=== PATIENT | female | born 1995 | race Caucasian/White ===

== ENCOUNTER 2020-08-18 08:56 | Outpatient (CLI) | payer OTHER, SELFPAY ==
--- NOTE | 2020-08-18 12:00 | NEURO_ITS ---
Impression: # Complains of numbness of feet. # No evidence of motor or sensory neuropathy. # No evidence of Tarsal Tunnel Syndrome. # Normal needle/EMG exam. # Clinical correlation recommended. Nerve Conduction Studies Anti Sensory Summary Table Stim Site NR Peak (ms) P-T Amp (?V) Site1 Site2 Delta-P (ms) Dist (cm) Dajuan (m/s) Left Sup Fibular Anti Sensory (Ant Lat Mall) 14 cm 3.7 6.0 14 cm Ant Lat Mall 3.7 16.0 43 Right Sup Fibular Anti Sensory (Ant Lat Mall) 14 cm 3.4 4.2 14 cm Ant Lat Mall 3.4 16.0 47 Left Sural Anti Sensory (Lat Mall) Calf 3.7 11.1 Calf Lat Mall 3.7 16.0 43 Right Sural Anti Sensory (Lat Mall) Calf 4.3 5.1 Calf Lat Mall 4.3 18.0 42 Motor Summary Table Stim Site NR Onset (ms) O-P Amp (mV) Site1 Site2 Delta-0 (ms) Dist (cm) Dajuan (m/s) Left Lateral Plantar Motor (ADM) Med Mall 4.7 2.4 Right Lateral Plantar Motor (ADM) Med Mall 4.3 1.2 Left Peroneal Motor (Vastus Med) Ankle 3.5 2.0 Popit Ankle 8.1 39.0 48 Popit 11.6 1.8 Right Peroneal Motor (Vastus Med) Ankle 3.5 2.0 Popit Ankle 7.8 38.0 49 Popit 11.3 1.8 Left Tibial Motor (Abd Mooney Brev) Ankle 3.8 2.4 Knee Ankle 9.4 41.0 44 Knee 13.2 2.4 Right Tibial Motor (Abd Mooney Brev) Ankle 3.9 5.5 Knee Ankle 7.8 40.0 51 Knee 11.7 5.2 F Wave Studies NR F-Lat (ms) L-R F-Lat (ms) Left Peroneal (Mrkrs) (EDB) 46.10 0.95 Right Peroneal (Mrkrs) (EDB) 45.16 0.95 Left Tibial (Mrkrs) (Abd Hallucis) 46.85 0.32 Right Tibial (Mrkrs) (Abd Hallucis) 46.53 0.32 EMG Side Muscle Nerve Root Ins Act Fibs Amp Dur Recrt Comment Right AntTibialis Dp Br Fibular L4-5 Nml Nml Nml Nml Nml Right Gastroc Tibial S1-2 Nml Nml Nml Nml Nml Right Fibularis Long Sup Br Fibular L5-S1 Nml Nml Nml Nml Nml Right Flex Dig Long Tibial L5-S2 Nml Nml Nml Nml Nml Right Ext Dig Brev Dp Br Fibular L5, S1 Nml Nml Nml Nml Nml Left AntTibialis Dp Br Fibular L4-5 Nml Nml Nml Nml Nml Left Gastroc Tibial S1-2 Nml Nml Nml Nml Nml Left Fibularis Long Sup Br Fibular L5-S1 Nml Nml Nml Nml Nml Left Flex Dig Long Tibial L5-S2 Nml Nml Nml Nml Nml Left Ext Dig Brev Dp Br Fibular L5, S1 Nml Nml Nml Nml Nml MTDD
== END 2020-08-18 08:57 | disposition home or self-care (01) ==
LOC: ANHNEURO 08:58
PROVIDERS: PCP Nurse Practitioner; Visit Provider Nurse Practitioner Family
DX: R20.2 Paresthesia of skin (principal)
CPT/HCPCS: 95886; 95911

== ENCOUNTER 2023-05-10 09:22 | Outpatient (CLI) | payer OTHER, SELFPAY ==
--- NOTE | ~2023-05-10 | US_ITS ---
EXAMINATION: US pelvic complete w TV DATE: 05/10/2023 11:04 INDICATION: Pelvic and perineal pain Comparison:Ultrasound dated 10/23/2021 TECHNIQUE: Multiple transabdominal and endovaginal sonographic images of the pelvis performed. FINDINGS: The uterus measures 8.6 x 4.9 x 5.5 cm. The endometrial complex measures 8 mm. The right ovary measures 6.1 x 3.5 x 4.9 cm and the left ovary measures 3.1 x 2.1 x 2 cm. There is a hemorrhagic cyst of the right ovary measuring 5 cm. There is an isoechoic 1.5 cm structure of the rig ht ovary, likely normal ovarian tissue.. Normal doppler signal in both ovaries. There is no free fluid in the pelvis. There are no abnormal masses seen on either side. IMPRESSION: 1. Hemorrhagic cyst of the right ovary measuring 5 cm. Consider follow-up ultrasound in 4-6 weeks to assess for resolution. Reviewed, dictated and finalized at location A. IMPRESSION: 1. Hemorrhagic cyst of the right ovary measuring 5 cm. Consider follow-up ultra sound in 4-6 weeks to assess for resolution.
== END 2023-05-10 09:23 | disposition home or self-care (01) ==
LOC: ANHIMG 09:24
PROVIDERS: Visit Provider Obstetrics & Gynecology
DX: N83.201 Unspecified ovarian cyst, right side (principal); I71.21 Aneurysm of the ascending aorta, without rupture
CPT/HCPCS: 76830; 76856

== ENCOUNTER 2023-05-31 08:29 | Outpatient (CLI) | payer OTHER, SELFPAY | END 2023-05-31 08:30 | disposition home or self-care (01) | LOC: ANHLAB 08:32 | PROVIDERS: Visit Provider Anesthesiology | DX: N83.209 Unspecified ovarian cyst, unspecified side (principal); Z01.818 Encounter for other preprocedural examination | CPT/HCPCS: 36415; 86850; 86900; 86901 ==

== ENCOUNTER 2023-06-10 03:14 | Day surgery (SDC) | payer OTHER, SELFPAY ==
--- NOTE | 2023-05-29 17:32 | PC.NURSE ---
Report to the Outpatient Waiting Room, entrance under the green pavilion located off [facility], at time 0800 on date 06/10/23. Planned Procedure Time: 1000. Time changes happen often and if your time is changed the preop area will call you the afternoon before. - You and your visitor will be asked to self-screen and do not enter if you have any COVID symptoms. - A mask is optional within the hospital at this time. Patients may have clear liquids (water, carbonated beverages, clear teas, apple juice) until 3 hours prior to surgery with a maximum of 20 ounces. 0700 - No food from midnight until time of surgery - Infants may have breast milk until 4 hours before surgery, formula 6 hours prior to surgery. - Children will be allowed to drink immediately following surgery. If applicable, please bring a bottle or sippy cup to assist with drinking. Juice, water, soda, and popsicles are readily available. For infants on formula, please bring formula the day of surgery. Pacifiers are allowed. Take the following medications with a SIP of water the morning of surgery: NONE DO NOT STOP ANY OF YOUR OTHER PRESCRIPTION MEDICATIONS PRIOR TO SURGERY ?EXCEPT THE FOLLOWING Medications to discontinue per physician NONE Date to take last dose Please no make-up, nail romansh, hairspray, perfume, deodorant, or body powder the day of surgery. No jewelry (including any body piercings) or valuables the day of surgery, leave them at home. Please take a shower or bath the night before, or the morning of, surgery with an antibacterial soap. Wear comfortable, loose fitting clothing. Children are encouraged to wear pajamas. - Jewelry must be removed prior to entering the operating room. Rings and piercings that are not removed may be cut off. - The hospital will not accept responsibility for valuables. - Please leave all valuables, including medications, at home the day of surgery. If you are going home after surgery, a licensed haul truck driver must drive you home. - NO public transportation without another adult if you receive anesthesia. - We recommend that an adult stay with you for 24 hours following discharge. - We also recommend that you do not drive, make important decision, drink alcoholic beverages, or take any drugs that were not prescribed by your health care provider for at least 24 hours after your discharge time. For Pediatric surgeries, we recommend two adults accompany the child home. Follow any additional instructions given to you from your surgeon. If you or anyone in your household have experienced Covid symptoms in the past week, please notify your surgeon or the nurse liaison at the phone number below for possible testing. Telephone instructions given to PATIENT- RAFFI FARMER and asked if any additional questions and then verbalized understanding. Patient advised to call surgeon office or pre surgery nurse liaison [phone] if any additional questions.
[2023-05-29 17:42] VITALS: BMI 25.0
--- NOTE | 2023-06-09 20:03 | PM.IMHP ---
H&P: HPI History of Present Illness Date/Time: 06/09/23 20:03 Chief Complaint: pelvic pain Narrative: Marian is a 28yo P1001, who presents for surgery. She went to [place] 01/2023 (didn't have records at that visit), but she was told she had ovarian cysts on CT scan and a UTI. She reports acute onset RLQ pain; severe that made her vomit and almost pass out. She has a h/o cysts in the past; had previously been on Depo, but stopped it due to significant weight gain. She reports painful cycles, bloating, constipation. She is not currently sexually active; not considering children in the near future yet. So, she was started on OCPs to help prevent ovulation. She reports taking the pills normally; not continuous. She denies pain outside of the cycle, but has a lot of RLQ ovarian pain during her cycle. CT scan from 01/2023 was reviewed and shows colitis/bowel thickening of the transverse and descending colon and 5cm right ovarian cyst vs hydrosalpinx. She had OPERATING TABLE ASSEMBLER US performed which showed a right sided 5cm hemorrhagic appearing cyst. She has a h/o right ovarian cystectomy 02/2019 which showed hemorrhagic cyst with adhesions and multiple paratubal cysts. Review of Systems Constitutional: Constitutional: Denies chills, Denies fever(s) and Denies headache(s) Eyes: Eyes: Denies change in vision ENT: Denies dizziness and Denies headache(s) Cardiovascular: Cardiovascular: Denies chest pain and Denies dyspnea Respiratory: Respiratory: Denies cough and Denies dyspnea Gastrointestinal: Gastrointestinal: Denies abdominal pain and Denies change in stool character Genitourinary: Genitourinary: Denies abnormal menses, Reports dysmenorrhea, Reports pelvic pain, Denies vaginal discharge, Denies vaginal odor and Denies vaginal pruritus Neurologic: Denies dizziness and Denies headache(s) Psychiatric: Psychiatric: Denies anxiety and Denies depression PMFSH Past Medical History Medical History Anxiety disorder Cardiac arrhythmia Encounter for Nexplanon removal 03/03/2019 Insertion of Nexplanon 08/27/2015 Sleep disorder Surgical History Surgical History History of gynecologic surgery diagnostic laparoscopy , right ovarian cyst , cyst biopsy - right ovarian hellorrhagic cyst- History of total adrenalectomy S/P lumpectomy, left breast S/P lumpectomy, right breast Family History Family History Other Acute myocardial infarction Diabetes mellitus Heart disease Hypertension Social History Social History (Updated 04/26/23 @ 09:31 by Ethel Call MA) Smoking packs per day: 1 Smoking cigarettes per day: 20.0 Years smoked: 8 Smoking pack-years: 8.00 Smoking status: Former smoker Tobacco type: cigarettes Alcohol intake: never Substance use: never Substance use type: does not use Do You Feel Safe in your Home?: Yes Lack of Transportation: No Lack of Food: Never True Current Housing: Decline to Answer Concerned About Future Housing: Decline to Answer Difficulty Paying Gas/Electric Bills: Decline to Answer Difficulty Paying for Meds: Decline to Answer Currently Unemployed: Decline to Answer Education: Decline to Answer Living arrangements: alone Additional living arrangements comments: with son Occupation/Education: occupation Gender identity (if verbalized by the patient): Female Sexual Orientation (if Verbalized by the Patient): Straight or Heterosexual Spiritual care concerns: No Meds Home Medications and Allergies Home Medications Medication Instructions Recorded Confirmed Type L norgest/E estradiol-E estrad 1 tablet PO HS 05/29/23 05/29/23 History 0.15 mg-30 mcg (84)/10 mcg(7) tabs,3mos Allergies Allergy/AdvReac Type Severity Reaction Status Date / Time morphine Allergy Unknown ITCHY/AGITATED-REACTION Verified
[2023-06-10] VITALS (9 sets, daily range): BP systolic 109–135; BP diastolic 50–87; PULSE 81–113; RESP 12–20; TEMP 36.5–36.6; O2SAT 95–100; BMI 24.9
--- NOTE | 2023-06-10 07:15 | WPDHPUPDATE1 ---
History and Physical Update Update Date/Time: 06/10/23 07:15 History and Physical has been reviewed, including an updated exam of the patient. There are NO changes in the patient's condition. Risks, benefits, and alternatives have been discussed and questions answered. Patient agrees to proceed with robotic assisted right salpingo-oophorectomy, with possible lysis of adhesions or fulguration of endometrial implants.
[2023-06-10] MEDS: KETOROLAC 15 MG/ML VIAL (*BKC) IV PUSH (08:44)
[2023-06-10] MEDS: ACETAMINOPHEN 500 MG TABLET 1000 MG PO (08:44)
--- NOTE | 2023-06-10 08:51 | WPDANESEPPF ---
Anes - Initial Pre Proc Eval Procedure: Operation Date: 06/10/23 10:00 Proposed Procedures p Robotic Assisted Laparoscopic Right Salpingo-oophorectomy, Fulguration of Endometriosis - Geovanna Trimble MD Date/Time: 06/10/23 08:51 Surgeon: Geovanna Trimble MD Pre Op Diagnosis: Rt Ovarian Cyst, Pelvic Pain Patient Data Age: 28 Gender: F Height: 1.65 m Weight: 67.85 kg Last Vital Signs Temp 36.6 C 06/10/23 08:41 Pulse 88 06/10/23 08:41 Resp 18 06/10/23 08:41 BP 130/87 06/10/23 08:41 Pulse Ox 100 06/10/23 08:41 O2 Del Method Room Air 06/10/23 08:41 Allergies Allergy/AdvReac Type Severity Reaction Status Date / Time morphine Allergy Unknown ITCHY/AGITATED-REACTION Verified 06/10/23 08:25 @ 2Y/O-HAS NOT HAD SINCE. Home Medications Medication Instructions Recorded Confirmed Type L norgest/E estradiol-E estrad 1 tablet PO HS 05/29/23 06/10/23 History 0.15 mg-30 mcg (84)/10 mcg(7) tabs,3mos Patient hx anesthesia problems: none Family hx anesthesia problems: none Results Review: All pre-operative results and documents have been reviewed as part of the pre-operative evaluation. [facility] Past Medical History Medical History Anxiety disorder Cardiac arrhythmia Encounter for Nexplanon removal 03/03/2019 Insertion of Nexplanon 08/27/2015 Sleep disorder Surgical History Surgical History History of gynecologic surgery diagnostic laparoscopy , right ovarian cyst , cyst biopsy - right ovarian hellorrhagic cyst- History of total adrenalectomy S/P lumpectomy, left breast S/P lumpectomy, right breast Family History Family History Other Acute myocardial infarction Diabetes mellitus Heart disease Hypertension Social History Social History Smoking packs per day: 1 Smoking cigarettes per day: 20.0 Years smoked: 8 Smoking pack-years: 8.00 Smoking status: Former smoker Tobacco type: cigarettes Alcohol intake: never Substance use: never Substance use type: does not use Do You Feel Safe in your Home?: Yes Lack of Transportation: No Lack of Food: Never True Current Housing: Decline to Answer Concerned About Future Housing: Decline to Answer Difficulty Paying Gas/Electric Bills: Decline to Answer Difficulty Paying for Meds: Decline to Answer Currently Unemployed: Decline to Answer Education: Decline to Answer Living arrangements: alone Additional living arrangements comments: with son Occupation/Education: occupation Gender identity (if verbalized by the patient): Female Sexual Orientation (if Verbalized by the Patient): Straight or Heterosexual Spiritual care concerns: No Anes - Eval Final PreProcedure Day of Procedure 06/10/23 08:51 Patient weight: normal Heart: regular rate and rhythm Lungs: clear to auscultation Airway: Mallampati scale class II and special considerations poor dentition Neurological: alert and oriented Last oral intake: >/= 8 hours ASA classification: II Emergent: no Anesthetic plan: proceed Anesthesia type and monitoring: general ETT and standard monitoring Results Review: All pre-operative results and documents have been reviewed as part of the pre-operative evaluation. Informed Consent: The patient's anesthetic plan and its attendant risks and benefits were discussed with the patient/family/POA. Questions were solicited and answers provided to the satisfaction of the patient/family/POA.
[2023-06-10] MEDS: LACTATED RINGERS 1,000 ML 30 ML IV CONT ×2 (09:05→11:06)
[2023-06-10] MEDS: SCOPOLAMINE 1 MG PATCH 1 PATCH TRANSDERM (09:05)
[2023-06-10] MEDS: LIDO 1%/EPINEPHRINE 1:100,000 20 ML VIAL 30 ML INFILTRATE (10:18)
[2023-06-10] MEDS: ceFAZolin SODIUM 1 GM VIAL 2 GM IV PUSH (10:42)
--- NOTE | 2023-06-10 10:56 | W.PM.PROC2 ---
Procedure Note - Detailed Date of Procedure 06/10/23 Pre-op Diagnosis Rt Ovarian Cyst, Pelvic Pain Post-op Diagnosis Other (Endometriosis) Procedure Performed Robotic assisted laparoscopic right salpingo-oophorectomy, lysis of adhesions/fulguration of endometriosis implants Surgeon Geovanna Trimble MD [employer] Stock Clerk luba Anesthesia General and Local (12cc of 1% lido with epi) Findings Uterus sounded to 7cm. Omental adhesions noted in the RUQ at her prior incision-- thin, filmy adhesions were taken down using laparoscopic scissors. Endometriosis and adhesions noted in the bilateral pelvis; which were taken down/fulgurated. The left ovary and tube were normal. The right ovary was noted to be loculated with multiple mass/cysts (5.5cm)-- it was adhered to the posterior uterus. The right ureter was pulled up but out of the surgical field. Cyst was place in a bag, and when removing from abdomen, chocolate fluid noted. Endometriosis noted and fulgurated on posterior uterus as well. Good hemostasis at end of case. Description of Procedure Marian was taken to the operating room where she was placed under general anesthesia without issues. She received 2 g Ancef. She was then prepped and draped in the usual sterile fashion in the dorsal lithotomy position with her legs in low Bryce stirrups, her arms tucked at her side, with a strap over her chest. A time-out was performed. My attention was turned down below where a Banerjee catheter was placed. A bivalve speculum was placed within the vagina. The cervix was easily identified and the anterior lip of the cervix was grasped with single-tooth tenaculum. The uterus was then sounded to 7cm. The cervix was serially dilated to allow for the Zumi uterine manipulator; which was placed w/o issue. My gloves were changed and attention was then turned to the abdomen. A 5 mm trocar was placed under direct visualization at Stanford's point without issue. Once intra-abdominal placement was confirmed, the abdomen was insufflated with carbon dioxide gas. An abdominal survey was performed and the above findings were noted. Two additional ports were placed on the right and left side and the camera port was placed suprapubically under direct visualization without issues. The thin, filmy adhesions from the omentum to the LUQ were taken doing using laparoscopic scissors without issue. The 5mm port was then switched out for the accessory port under direct visualization. The patient was then placed in deep Trendelenburg, with the legs slightly lowered. The robot was then docked. The instruments were placed intra-abdominally under direct visualization. I then un-scrubbed and went to the robotic console. The ureter was easily identified transperitoneally and well out of the surgical field. The right IP ligament was serially grasped and coagulated in multiple spot. The IP ligament was then noted to be cauterized and was then transected with good hemostasis noted. In the mid right fallopian tube, the mesosalpinx was coagulated and a window was made. The mesosalpinx incision was extended medially until the proximal end of the tube was cross clamped, coagulated, and the tube was transected. The right utero-ovarian complex was then serially clamped, coagulated and then transected with good hemostasis. The ovary was free from all blood supply, but was still adhered to the posterior uterus by scar tissue. The scar tissue was slowly and carefully taken out, coagulating small bleeders. The ovary was placed within the anterior culdesac. The adhesions along both pelvic side alves involving the omentum and intestines were carefully taken down. The endometriosis along the posterior uterine wall was then fulgurated. The ovary was then placed within a bag. The bag was then brought to the incision and the trocar removed. The skin and fascial incision were slightly enlarged. The cyst was grasped using Cherri clamps and ruptured and chocolate fluid noted onto the surgical f
[2023-06-10] MEDS: fentaNYL CITRATE INJ (*CRX) 100 MCG/2 ML VIAL 25 MCG IV PUSH ×6 (11:26→11:48)
[2023-06-10] MEDS: ONDANSETRON INJ 4 MG/2 ML VIAL IV PUSH (11:40)
[2023-06-10] MEDS: diphenhydrAMINE HCl INJ 50 MG/ML VIAL 25 MG IV PUSH (12:14)
[2023-06-10] MEDS: oxyCODONE HCL (*CRX) 5 MG TAB IR PO (12:29)
== END 2023-06-10 13:00 | disposition home or self-care (01) ==
PROVIDERS: Visit Provider Obstetrics & Gynecology
PROC: 8E0W4CZ Robotic Assisted Procedure of Trunk Region, Percutaneous Endoscopic Approach (ICD-10-PCS; CPT 49320; principal; 2023-06-10 10:00)
DX: N83.201 Unspecified ovarian cyst, right side (principal); N80.101 Endometriosis of right ovary, unspecified depth; N80.00 Endometriosis of the uterus, unspecified; N80.30 Endometriosis of pelvic peritoneum, unspecified; N73.6 Female pelvic peritoneal adhesions (postinfective); F41.9 Anxiety disorder, unspecified; I49.9 Cardiac arrhythmia, unspecified; G47.9 Sleep disorder, unspecified; Z98.890 Other specified postprocedural states; Z87.891 Personal history of nicotine dependence; Z82.49 Family history of ischemic heart disease and other diseases of the circulatory system
CPT/HCPCS: 58661; 58662; S2900; 88305; A9270; J0690; J1100; J1170; J1200; J1885; J2250; J2405; J2704; J3010; J7030; J7120

== ENCOUNTER 2023-08-16 11:39 | Outpatient (CLI) | payer OTHER, SELFPAY ==
[2023-08-16 12:30] LABS: Hemoglobin 12.1 g/dL (12.0-15.0); Mean Corpuscular HGB Conc 31.8 g/dl (32-36); Mean Corpuscular Hemoglobin 26.5 pg (26-34); Mean Corpuscular Volume 83.3 fl (80-100); Mean Platelet Volume 10.5 fl (7.4-10.4); Platelet Count Result 266 k/mm3 (150-375); Red Blood Count 4.56 M/mm3 (4.2-5.4); Red Cell Distribution Width 14.5 % (11.5-14.5); White Blood Count 4.7 K/mm3 (4.5-10.0)
[2023-08-16 12:48] LABS: Alanine Aminotransferase 9 U/L (6-35); Albumin Level 4.4 g/dL (3.5-5.1); Alkaline Phosphatase 40 U/L (38-126); Anion Gap 6 mmol/L (4-12); Aspartate Amino Transferase 19 U/L (14-36); Bilirubin,Total 0.5 mg/dL (0.2-1.3); Blood Urea Nitrogen 9 mg/dL (7-17); CRP < 0.5 mg/dL (<1.0); Calcium 9.6 mg/dL (8.4-10.2); Carbon Dioxide 24 mmol/L (22-30); Chloride 107 mmol/L (98-107); Estimated Glomerular Filt Rate > 60; Glucose 84 mg/dL (65-110); Potassium 4.1 mmol/L (3.4-5.0); Sodium 137 mmol/L (137-145)
[2023-08-16 13:08] LABS: Erythrocyte Sedimentation Rate 11 mm/hr (0-20)
== END 2023-08-16 11:40 | disposition home or self-care (01) ==
LOC: ANHLAB 11:40
PROVIDERS: Visit Provider Nurse Practitioner
DX: K52.9 Noninfective gastroenteritis and colitis, unspecified (principal); K59.00 Constipation, unspecified; R14.0 Abdominal distension (gaseous)
CPT/HCPCS: 36415; 80053; 84443; 85027; 85652; 86140

== ENCOUNTER 2023-09-23 07:22 | Outpatient (NON) | payer OTHER, SELFPAY | END 2023-09-23 07:23 | disposition home or self-care (01) | LOC: ANHLAB 09-24 07:24 | PROVIDERS: Visit Provider Internal Medicine Gastroenterology | DX: R14.0 Abdominal distension (gaseous) (principal) | CPT/HCPCS: 88305 ==

== ENCOUNTER 2023-09-23 08:35 | Day surgery (SDC) | payer OTHER, SELFPAY ==
[2023-08-16 14:09] VITALS: BMI 25.7
[2023-09-11 13:38] VITALS: BMI 26.6
--- NOTE | 2023-09-21 16:34 | PM.HPGS ---
History of Present Illness History of Present Illness Consent: Risks, benefits, and alternatives have been discussed and questions answered. Patient agrees to proceed with procedure. Chief complaint: Change in bowel habit,abdominal distension gaseous Narrative: Marian Boo is a 28 year old female states currently she is having a bowel movement 1 time per week, states #4 on the Bonifay stool scale. Sometimes she will have a BM more with certain foods like broccoli, jalapenos, and lettuce. When she does have BM weekly, she will gets hot, sweaty, nauseous, and has sharpshooting pains in lower abdomen around back when needs to have a bowel movement, Review of Systems Review of Systems: All systems reviewed & are unremarkable except as noted in HPI and below PMFSH Past Medical History Medical History Anxiety disorder Cardiac arrhythmia Encounter for Nexplanon removal 03/03/2019 Insertion of Nexplanon 08/27/2015 Sleep disorder Surgical History Surgical History History of gynecologic surgery diagnostic laparoscopy , right ovarian cyst , cyst biopsy - right ovarian hellorrhagic cyst- History of gynecologic surgery 06/10/2023 - Robotic assisted laparoscopic right salpingo-oophorectomy, lysis of adhesions/fulguration of endometriosis implants History of total adrenalectomy S/P lumpectomy, left breast S/P lumpectomy, right breast Family History Family History Other Acute myocardial infarction Diabetes mellitus Heart disease Hypertension Social History Social History Smoking packs per day: 1 Smoking cigarettes per day: 20.0 Years smoked: 8 Smoking pack-years: 8.00 Smoking status: Current every day smoker Tobacco type: e-cigarettes/vaping Alcohol intake: never Substance use: never Substance use type: does not use Do You Feel Safe in your Home?: Yes Lack of Transportation: No Lack of Food: Never True Current Housing: Decline to Answer Concerned About Future Housing: Decline to Answer Difficulty Paying Gas/Electric Bills: Decline to Answer Difficulty Paying for Meds: Decline to Answer Currently Unemployed: Decline to Answer Education: Decline to Answer Living arrangements: with family Additional living arrangements comments: with son Occupation/Education: occupation Gender identity (if verbalized by the patient): Female Sexual Orientation (if Verbalized by the Patient): Straight or Heterosexual Spiritual care concerns: No Meds Home Medications and Allergies Home Medications Medication Instructions Recorded Confirmed Type metoprolol tartrate 25 mg tablet 25 mg PO BID 08/16/23 09/23/23 History Allergies Allergy/AdvReac Type Severity Reaction Status Date / Time morphine Allergy Unknown ITCHY/AGITATED-REACTION Verified 09/23/23 09:53 @ 2Y/O-HAS NOT HAD SINCE. Exam Resp: Auscultation: clear to auscultation bilaterally Cardio: Rate: regular rate Rhythm: regular rhythm GI: GI Palp: Yes Soft to palpation and No Tenderness to palpation present (GI) Assessment and Plan Assessment and plan (1) Constipation: Code(s): K59.00 - Constipation, unspecified Status: Acute Assessment and Plan: Colonoscopy with possible biopsy or polypectomy or cautery or injection of substances.
[2023-09-23 09:56] VITALS: BP 118/80; PULSE 80; RESP 15; TEMP 36.8; O2SAT 100
[2023-09-23] MEDS: LACTATED RINGERS 1,000 ML 150 ML IV CONT (09:58)
--- NOTE | 2023-09-23 10:26 | WPDANESEPPF ---
Anes - Initial Pre Proc Eval Procedure: Operation Date: 09/23/23 11:00 Proposed Procedures p Diagnostic Colonoscopy - Fabien Shin MD Date/Time: 09/23/23 10:26 Surgeon: Fabien Shin MD Pre Op Diagnosis: Change in bowel habit,abdominal distension gaseous Patient Data Age: 28 Gender: F Height: 1.65 m Weight: 69 kg Last Vital Signs Temp 36.8 C 09/23/23 09:56 Pulse 80 09/23/23 09:56 Resp 15 09/23/23 09:56 BP 118/80 09/23/23 09:56 Pulse Ox 100 09/23/23 09:56 O2 Del Method Room Air 09/23/23 09:56 Allergies Allergy/AdvReac Type Severity Reaction Status Date / Time morphine Allergy Unknown ITCHY/AGITATED-REACTION Verified 09/23/23 09:53 @ 2Y/O-HAS NOT HAD SINCE. Home Medications Medication Instructions Recorded Confirmed Type metoprolol tartrate 25 mg tablet 25 mg PO BID 08/16/23 09/23/23 History Patient hx anesthesia problems: none Family hx anesthesia problems: none Results Review: All pre-operative results and documents have been reviewed as part of the pre-operative evaluation. [facility] Past Medical History Medical History Anxiety disorder Cardiac arrhythmia Encounter for Nexplanon removal 03/03/2019 Insertion of Nexplanon 08/27/2015 Sleep disorder Surgical History Surgical History History of gynecologic surgery diagnostic laparoscopy , right ovarian cyst , cyst biopsy - right ovarian hellorrhagic cyst- History of gynecologic surgery 06/10/2023 - Robotic assisted laparoscopic right salpingo-oophorectomy, lysis of adhesions/fulguration of endometriosis implants History of total adrenalectomy S/P lumpectomy, left breast S/P lumpectomy, right breast Family History Family History Other Acute myocardial infarction Diabetes mellitus Heart disease Hypertension Social History Social History Smoking packs per day: 1 Smoking cigarettes per day: 20.0 Years smoked: 8 Smoking pack-years: 8.00 Smoking status: Current every day smoker Tobacco type: e-cigarettes/vaping Alcohol intake: never Substance use: never Substance use type: does not use Do You Feel Safe in your Home?: Yes Lack of Transportation: No Lack of Food: Never True Current Housing: Decline to Answer Concerned About Future Housing: Decline to Answer Difficulty Paying Gas/Electric Bills: Decline to Answer Difficulty Paying for Meds: Decline to Answer Currently Unemployed: Decline to Answer Education: Decline to Answer Living arrangements: with family Additional living arrangements comments: with son Occupation/Education: occupation Gender identity (if verbalized by the patient): Female Sexual Orientation (if Verbalized by the Patient): Straight or Heterosexual Spiritual care concerns: No Anes - Eval Final PreProcedure Day of Procedure 09/23/23 10:26 Patient weight: overweight Heart: regular rate and rhythm Lungs: clear to auscultation Airway: Mallampati scale class II Neurological: alert and oriented Last oral intake: >/= 8 hours ASA classification: II Emergent: no Anesthetic plan: proceed Anesthesia type and monitoring: general GIVS and standard monitoring Results Review: All pre-operative results and documents have been reviewed as part of the pre-operative evaluation. Informed Consent: The patient's anesthetic plan and its attendant risks and benefits were discussed with the patient/family/POA. Questions were solicited and answers provided to the satisfaction of the patient/family/POA.
[2023-09-23 10:47] VITALS: BP 105/68; PULSE 72; RESP 16; O2SAT 100
[2023-09-23 10:57] VITALS: BP 103/72; PULSE 74; RESP 16; O2SAT 100
--- NOTE | 2023-09-23 10:58 | WPDANESPN ---
Anes - Prog Note Post-Op Date/Time: 09/23/23 10:58 Cardiovascular status: normal Respiratory status: normal Airway patency: baseline Mental status: baseline Post-Op hydration status: normal Vital Signs: Last Vital Signs Temp 36.8 C 09/23/23 09:56 Pulse 74 09/23/23 10:57 Resp 16 09/23/23 10:57 BP 103/72 09/23/23 10:57 Pulse Ox 100 09/23/23 10:57 O2 Del Method Room Air 09/23/23 10:57 Pain Score (VAS): 0/10 I/O: Intake & Output 09/22/23 09/23/23 09/23/23 23:59 07:59 15:59 Intake Total 250 Balance 250 Patient Feedback: Patient satisfied with anesthetic care.
[2023-09-23 11:07] VITALS: BP 109/71; PULSE 70; RESP 16; O2SAT 100
== END 2023-09-23 11:15 | disposition home or self-care (01) ==
PROVIDERS: Visit Provider Internal Medicine Gastroenterology
PROC: 0DJD8ZZ Inspection of Lower Intestinal Tract, Via Natural or Artificial Opening Endoscopic (ICD-10-PCS; CPT 45378; principal; 2023-09-23 11:00)
DX: R19.4 Change in bowel habit (principal)
CPT/HCPCS: 45380